=== PATIENT | male | born 1945 | race Hispanic/Latino ===

== ENCOUNTER 2021-02-26 08:48 | Emergency (ER) | payer OTHER ==
[~2021-02-26] VITALS: Ht 167.6 cm; Wt 143.3 kg
[2021-02-26 09:28] VITALS: BP 113/64
[2021-02-26] MEDS ORDERED: LATA7.5D OP (09:36)
[2021-02-26] MEDS ORDERED: SIMV40TA59 PO (09:42)
[2021-02-26] MEDS ORDERED: ASPI-1197 PO (09:42)
[2021-02-26] MEDS ORDERED: ACET-2743 PO (09:42)
[2021-02-26] MEDS ORDERED: LISI1TAB51 PO (09:42)
[2021-02-26] MEDS ORDERED: MECLIZINE HCL 25 MG TABLET ONE (09:43)
[2021-02-26] MEDS ORDERED: MECL-226 PO (09:51)
[2021-02-26] MEDS ORDERED: MECLIZINE HCL 25 MG TABLET PO SCH (10:00)
== END 2021-02-26 10:13 | disposition home or self-care (01) ==
LOC: EDH 08:48
DX: H81.10 Benign paroxysmal vertigo, unspecified ear (principal); E03.9 Hypothyroidism, unspecified; E11.9 Type 2 diabetes mellitus without complications; E78.00 Pure hypercholesterolemia, unspecified; I10 Essential (primary) hypertension; Z79.82 Long term (current) use of aspirin; Z79.899 Other long term (current) drug therapy
CPT/HCPCS: 93005

== ENCOUNTER → 2022-01-19 | Outpatient (CLI) | payer OTHER ==
[~2022-01-19] MED LIST: ACET-2743 PO; ASPI-1197 PO; LATA7.5D OP; LISI1TAB51 PO; MECL-226 PO; SIMV40TA59 PO
== END | disposition home or self-care (01) ==
LOC: OIH 11:03
PROVIDERS: ATTEND Internal Medicine Cardiovascular Disease
DX: I11.9 Hypertensive heart disease without heart failure (principal); I31.3 Pericardial effusion (noninflammatory); E11.9 Type 2 diabetes mellitus without complications; E78.5 Hyperlipidemia, unspecified; E66.9 Obesity, unspecified
CPT/HCPCS: 93306

== ENCOUNTER → 2022-02-16 | Outpatient (CLI) | payer OTHER | END | disposition home or self-care (01) | LOC: SHCH 12:55 | PROVIDERS: ATTEND Internal Medicine Cardiovascular Disease | DX: I87.2 Venous insufficiency (chronic) (peripheral) (principal) | CPT/HCPCS: 93970 ==